=== PATIENT | male | born 1985 | race Caucasian/White ===

== ENCOUNTER 2016-09-27 10:11 | Emergency (ER) | payer OTHER | END 2016-09-27 11:56 | disposition home or self-care (01) | LOC: ER 10:11 | DX: K08.89 Other specified disorders of teeth and supporting structures (principal); R51 Headache; F17.210 Nicotine dependence, cigarettes, uncomplicated; Z87.898 Personal history of other specified conditions | CPT/HCPCS: 99282 ==